=== PATIENT | male | born 1980 | race Caucasian/White ===

== ENCOUNTER 2019-10-02 10:44 | Day surgery (SDC) | payer OTHER, SELFPAY ==
[2019-10-01 11:36] VITALS: BMI 35.6
[2019-10-02] VITALS (9 sets, daily range): BP systolic 122–183; BP diastolic 58–125; PULSE 67–87; RESP 14–18; TEMP 36.1–36.9; O2SAT 94–98
[2019-10-02] MEDS: sodium chloride 0.9% 1,000 ML 30 ML IV (11:50)
--- NOTE | 2019-10-02 11:58 | P.ANESASSM_ITS ---
Pre-Anesthetic Assessment Pre-Anesthetic Assessment: Height/Weight: Height 1.8 m Weight 116.12 kg Temp Pulse Resp BP Pulse Ox 97 F L 85 18 183/118 98 10/02/19 11:06 10/02/19 11:06 10/02/19 11:06 10/02/19 11:07 10/02/19 11:06 Preop Diagnosis: Left ACL tear Proposed Procedure: Operation Date: 10/02/19 12:20 Proposed Procedures p ACL Repair Reconstruction [id number] S83.512A S83.242A(Left) - Anastacio Alexander MD s Left knee menisus repair versus meniscectomy(Left) - Anastacio Alexander MD Last intake: Intake Last Liquid Date 10/01/19 Last Liquid Time 21:30 Last Solid Date 10/01/19 Last Solid Time 20:00 Exam: Pre-Anes Outpt Exam: alert, oriented x 3, clear to auscultation bila terally and regular rate & rhythm Airway: Submandibular: WNL Cervical ROM: WNL MP: 2 Dentition: Caps Anesthetic Plan: ASA status: 2 Anesthesia: General Meds/Allergies Current Medications: Current Medications Generic Name Dose Route Start Last Admin Trade Name Freq PRN Reason Stop Dose Admin Sodium Chloride 1,000 mls @ 30 ml s/hr 10/02/19 11:00 10/02/19 11:50 Sodium Chloride 0.9% IV 10/03/19 10:59 30 mls/hr .Q24H SOLO Administration PFSH Anesthesia PFSH: Social History Smoking and tobacco status: never smoked Alcohol intake: current Alcohol intake frequency: holidays/special occasions only Data Anesthesia Cardiac Studies: No Data to Display
--- NOTE | 2019-10-02 14:16 | W.PM.OPSUD ---
Surgery/Procedure H&P Update DATE OF PROCEDURE: October 02, 2019 PREOP DIAGNOSIS: Left ACL tear PLANNED PROCEDURE: Operation Date: 10/02/19 12:20 Proposed Procedures p ACL Repair Reconstruction [id number] S83.512A S83.242A(Left) - Anastacio Alexander MD s Left knee menisus repair versus meniscectomy(Left) - Anastacio Alexander MD
--- NOTE | 2019-10-02 14:17 | W.PM.OPSFHP ---
Same Day Surgery H&P Indication for Procedure/HPI DATE OF PROCEDURE: October 02, 2019 CHIEF COMPLAINT/INDICATIONFOR SURGICAL PROCEDURE: Left anterior cruciate ligament tear. Patient is a active father and wishes to resume to high risk activities including basketball, running and jumping with his children. Surgical reconstruction has been chosen to improve stability and activity level PREOP DIAGNOSIS: Left ACL tear PLANNED PROCEDRUE: Operation Date: 10/02/19 12:20 Proposed Procedures p ACL Repair Reconstruction [id number] S83.512A S83.242A(Left) - Anastacio Alexander MD s Left knee menisus repair versus meniscectomy(Left) - Anastacio Alexander MD Medications/Allergies* Home Medications Medication Instructions Recorded Confirmed Type No Known Home Medications 08/05/19 10/01/19 History Allergies/Adverse Reactions Allergy/AdvReac Type Severity Reaction Status Date / Time No Known Allergies Allergy Verified 07/26/19 17:58 Current Medications: Generic Name Dose Route Start Last Admin Trade Name Freq PRN Reason Stop Dose Admin Sodium Chloride 1,000 mls @ 30 mls/hr 10/02/19 11:00 10/02/19 11:50 Sodium Chloride 0.9% IV 10/03/19 10:59 30 mls/hr .Q24H SOLO Administration Pertinent History/Comorbid Conditions* Family History (Updated 08/05/19 @ 13:26 by Mila Falcon LPN) Diabetes Grandfather CAD (coronary artery disease) Grandfather Hyperlipidemia Mother Father Cancer Grandmother Hypertension Mother Father Stroke Grandmother Denies family history of Clotting disorder Dementia Psychiatric illness Chronic kidney disease (CKD) Suicide Anesthesia complication Bleeding disorder Family history of premature coronary artery disease Lung disease Social History Smoking and tobacco status: never smoked Alcohol intake: current Alcohol intake frequency: holidays/special occasions only Pertinent Exam Findings alert, oriented x 3, clear to auscultation bilaterally and regular rate & rhythm Recommendations Surgery/Procedure today (Left anterior cruciate ligament reconstruction) Coding Level of Care Code Acute [employer] Assembler for Apurva Elliott
[2019-10-02] MEDS: morphine 4 mg/mL SDV 1 mL 8 MG IM (15:29)
--- NOTE | 2019-10-02 16:41 | PM.OP ---
Operative Report Date of procedure: October 02, 2019 Pre-op Diagnosis: Left ACL tear, possible medial meniscal tear Post-op Diagnosis: Left anterior cruciate ligament tear Post-op Findings: As above Procedure Done: Left anterior cruciate ligament reconstruction Implants: 25 mm closed loop Endobutton, large BiosureSync sheath, 9x25mm BioSur PK screw Anesthesia: General Estimated blood loss (mL): 50 Complications: None Findings: The patient had complete disruption of his anterior cruciate ligament with really no significant remaining fibers. His menisci and chondral surfaces were healthy Condition: stable Disposition: PACU Procedure: The patient was taken to the operating room and given 2 g of Ancef. He was given a general anesthesia and prepped and draped in the supine position with a tourniquet on the patient's left thigh. The knee was entered through a standard inferior lateral and inferior medial portal. The disruption of the anterior cruciate ligament was confirmed. His medial meniscus was carefully probed as was the lateral meniscus in both found to be free of tearing. No significant chondromalacia was identified. Attention was then paid to the anterior cruciate ligament. Utilizing an incisor shaver small amount of lateral wall was resected allowing visualization of the posterior lateral intercondylar notch. A 3 cm long incision was then made over the medial tibial plateau and dissection carried down with blunt scissors identifying a well-defined semi-tendinosis and gracilis graft. The 2 grafts were freed off their insertion on the tibia and fixed with a [employer] Ultrabraid suture. Using the closed ended tendon stripper to grafts were harvested. On the back table with her freed of muscle and the free ends fixed with the Ultrabraid suture. They were pretensioned on the back table. They were measured and fit snugly through a 8 mm tunnel proximally and 9 mm tunnel distally. Using the anatomic femoral footprint guide, a guidepin was driven up from the 1:30 position exiting superior and lateral femur. Tunnel depth was measured at 52.5 mm. The Endobutton reamer was passed over the guide pin confirming the length of tunnel. A 8 mm mm reamer was then passed to a depth of 40 mm. The [employer] ProTrac guide was used to pass a guidepin from the medial tibia exiting the tibial footprint. . On the back table, the 2 grafts were doubled through a 25 mm closed loop Endobutton. This allowed 27.5 mm of tendon to be buried in the femur and allowed more than sufficient room to flip the Endobutton. The grafts were shuttled from the tibia through the femur using an ultra braid suture. The Endobutton was felt to flip on the lateral cortex and secured with tension on the sutures to the tibia. A [employer] Biosure Sync sleeve was placed and was secured with a 9 x 25 mm Biosure PK screw. Intraoperative images showed satisfactory position of the button. The knee and medial wounds were irrigated with saline. The sartorius fascia was closed with 2-0 Vicryl. Deep tissues were closed with 2-0 Vicryl. The tibial wound was closed with a running 3-0 Prolene. Portals were closed with 3-0 Prolene. Steri-Strips were applied over the tibial incision. Sterile dressings were applied. The patient was placed in a hinged knee brace locked in full extension. He was taken to recovery room in stable condition.
[2019-10-02] MEDS: HYDROcodone-acetaminophen 7.5-325 mg Tablet 1 TAB PO (17:36)
== END 2019-10-02 18:20 | disposition home or self-care (01) ==
PROVIDERS: PCP Family Medicine; Visit Provider Orthopaedic Surgery
PROC: (CPT 27407; principal; 2019-10-02 12:20)
PROC: (CPT 29870; 2019-10-02 12:20)
DX: S83.512A Sprain of anterior cruciate ligament of left knee, initial encounter (principal); X58.XXXA Exposure to other specified factors, initial encounter; Z82.49 Family history of ischemic heart disease and other diseases of the circulatory system; Z83.3 Family history of diabetes mellitus; Z82.3 Family history of stroke
CPT/HCPCS: 29888; 12345; C1713; J0690; J1580; J1885; J2001; J2250; J2270; J2704; J3010; J3490; J7030